=== PATIENT | female | born 1995 | race Asian ===

== ENCOUNTER 2022-10-06 15:28 | Emergency (ER) | payer OTHER ==
[~2022-10-06] VITALS: Ht 160 cm; Wt 59.1 kg
[2022-10-06] MEDS ORDERED: ESCI-8 PO (15:48)
[2022-10-06] MEDS ORDERED: DROS4TAB PO (16:36)
[2022-10-06] MEDS ORDERED: IBUPROFEN 600 MG TABLET PO ONE (16:45)
[2022-10-06] MEDS ORDERED: METHOCARBAMOL 500 MG TABLET PO ONE (16:45)
[2022-10-06] MEDS ORDERED: IBUP-1492 PO (18:42)
[2022-10-06 18:59] VITALS: BP 125/80
== END 2022-10-06 19:06 | disposition home or self-care (01) ==
LOC: EMS 15:30
DX: S29.012A Strain of muscle and tendon of back wall of thorax, initial encounter (principal); S20.229A Contusion of unspecified back wall of thorax, initial encounter; F41.9 Anxiety disorder, unspecified; F32.A Depression, unspecified; V98.8XXA Other specified transport accidents, initial encounter; Y93.89 Activity, other specified; Y92.89 Other specified places as the place of occurrence of the external cause; Y99.8 Other external cause status
CPT/HCPCS: 71046; 72040; 72070; 99283